=== PATIENT | female | born 1980 | race Caucasian/White ===

== ENCOUNTER 2017-01-11 19:15 | Emergency (ER) | payer MEDICAID ==
[~2017-01-11] VITALS: Ht 160 cm; Wt 81.4 kg
[~2017-01-11 19:15] MED LIST: PREN0.01 PO
[2017-01-11 19:25] VITALS: BP 115/55; PULSE 74; RESP 18; TEMP 97.9; O2SAT 100
[2017-01-11] MEDS ORDERED: SODIUM CHLOR 0.9% 1000 ML INJ 1,000 ML IV ONE (19:35)
--- NOTE | 2017-01-11 19:40 | PD ---
HPI Chief Complaint: Headache Time Seen by Provider: 19:30 Travel History International Travel<30 days: No Contact w/Intl Traveler<30days: No Traveled to known affect area: No History of Present Illness HPI Patient is a 36-year-old female who presents to emergency room with complaints of a migraine headache. Patient reports that she woke up this morning and had a pressure sensation across the front of her head. Patient reports that sensation was associated with photophobia. Patient reports no nausea or vomiting with her symptoms, denies any fevers or chills. Patient reports that she did try taking aspirin with no relief of symptoms. Patient reports that she has had migraines in the past, reports her symptoms today are similar to her previous except in the past, she did find relief with aspirin. Patient denies any trauma or injury to the head. Patient denies any thunderclap headache, reports that this is not the worst headache of her life. Patient with no chest pain or shortness of breath, no other symptoms. PFSH Past Medical History Diabetes: Yes (GESTATIONAL) Patient Takes Glucophage: No Diminished Hearing: No Headaches: Yes ("NO OFFICIAL MIGRAINE DIAGNOSIS") Medical other: Yes (CHILDHOOD CH[place]) Tetanus Vaccination: > 5 Years Influenza Vaccination: Yes ?: Not LMP: 01/11/17 : 4 Para: 3 Miscarriage: 1 Tubal Ligation: Yes (AUGUST 2016) Past Surgical History Section: Yes (X3) Social History Alcohol Use: Yes ("VERY RARELY") Tobacco Use: Yes (1/2 PPD) Substance Use: No Allergies-Medications (Allergen,Severity, Reaction): Coded Allergies: No Known Allergies (Verified Adverse Reaction, Unknown, 01/11/17) Reported Meds & Prescriptions Reported Meds & Active Scripts Active No Active Prescriptions or Reported Medications Review of Systems HENT: Positive: Headaches, No: Vertigo, Lightheadedness, Sore Throat, Neck Pain Cardiovascular: No: Chest Pain or Discomfort, Palpitations, Irregular Rhythm Respiratory: No: Cough, Shortness of Breath, Wheezing Gastrointestinal: No: Diarrhea Neurologic: Positive: Headache, No: Weakness, Dizziness, Syncope, Focal Abnormalities, Tremor, Ataxia Physical Exam Narrative GENERAL: moderate distress SKIN: Focused skin assessment warm/dry. HEAD: Atraumatic. Normocephalic. EYES: Pupils equal and round. No scleral icterus. No injection or drainage. ENT: No nasal bleeding or discharge. Mucous membranes pink and moist. NECK: Trachea midline. No JVD. CARDIOVASCULAR: Regular rate and rhythm. No murmur appreciated. RESPIRATORY: No accessory muscle use. Clear to auscultation. Breath sounds equal bilaterally. GASTROINTESTINAL: Abdomen soft, non-tender, nondistended. Hepatic and splenic margins not palpable. MUSCULOSKELETAL: No obvious deformities. No clubbing. No cyanosis. No edema. NEUROLOGICAL: Awake and alert. No obvious cranial nerve deficits. Motor grossly within normal limits. Normal speech. CN 2-12 grossly intact with no neurological deficits PSYCHIATRIC: Appropriate mood and affect; insight and judgment normal. Data Data Last Documented VS Vital Signs Date Time Temp Pulse Resp B/P (MAP) Pulse Ox O2 Delivery O2 Flow Rate FiO2 01/11/17 21:00 66 16 102/63 (76) 100 Room Air 01/11/17 19:25 97.9 Orders Orders Complete Blood Count With Diff (01/11/17 19:35) Basic Metabolic Panel (Bmp) (01/11/17 19:35) Prothrombin Time / Inr (Pt) (01/11/17 19:35) Act Partial Throm Time (Ptt) (01/11/17 19:35) Ct Brain W/O Iv Contrast(Rout) (01/11/17 19:35) Ecg Monitoring (01/11/17 19:35) Iv Access Insert/Monitor (01/11/17 19:35) Oximetry (01/11/17 19:35) Sodium Chloride 0.9% Flush (Ns Flush) (01/11/17 19:45) Diphenhydramine Inj (Benadryl Inj) (01/11/17 19:45) Metoclopramide Inj (Reglan Inj) (01/11/17 19:45) Sodium Chlor 0.9% 1000 Ml Inj (Ns 1000 M (01/11/17 19:35) Dexamethasone Inj (Decadron Inj) (01/11/17 19:45) Ed Urine Pregnancytest Poc (01/11/17 19:35) Ketorolac Inj (Toradol Inj) (01/11/17 21:00) Labs Laboratory Tests Test 01/11/17 19:50 White Blood Count 10.1 TH/MM3 Red Blood Count 4.51 MIL/MM3 Hemoglobin 13.4 GM/DL Hematocrit 39.6 % Mean Corpuscular Volume 87.7 FL Mean Corpuscular Hemoglobin 29.7 PG Mean Corpuscular Hemoglobin Concent 33.9 % Red Cell Distribution Width 12.5 % Platelet Count 265 TH/MM3 Mean Platelet Volume 8.6 FL Neutrophils (%) (Auto) 55.0 % Lymphocytes (%) (Auto) 34.8 % Monocytes (%) (Auto) 4.7 % Eosinophils (%) (Auto) 3.8 % Basophils (%) (Auto) 1.7 % Neutrophils # (Auto) 5.5 TH/MM3 Lymphocytes # (Auto) 3.5 TH/MM3 Monocytes # (Auto) 0.5 TH/MM3 Eosinophils # (Auto) 0.4 TH/MM3 Basophils # (Auto) 0.2 TH/MM3 CBC Comment DIFF FINAL Differential Comment Prothrombin Time 10.7 SEC Prothromb Time International Ratio 1.0 RATIO Activated Partial Thromboplast Time 29.4 SEC Blood Urea Nitrogen 10 MG/DL Creatinine 0.82 MG/DL Random Glucose 84 MG/DL Calcium Level 8.4 MG/DL Sodium Level 140 MEQ/L Potassium Level 3.8 MEQ/L Chloride Level 109 MEQ/L Carbon Dioxide Level 22.4 MEQ/L Anion Gap 9 MEQ/L Estimat Glomerular Filtration Rate 80 ML/MIN MDM Medical Decision Making Medical Screen Exam Complete: Yes Emergency Medical Condition: Yes Medical Record Reviewed: Yes Interpretation(s) Vital Signs Date Time Temp Pulse Resp B/P (MAP) Pulse Ox O2 Delivery O2 Flow Rate FiO2 01/11/17 19:25 97.9 74 18 115/55 (75) 100 Differential Diagnosis cephalgia, intracranial hemorrhage, electrolyte abnormality, migraine Narrative Course Patient is a 36-year-old female presents to emergency room with complaints of migraine headache since 7 AM this morning. Patient reports history of migraines in the past, reports that her symptoms today are similar to the past when she has had migraines only today, symptoms have been persistent. Patient reports that she was never formally diagnosed with migraine headaches, has never had any imaging studies. During the course of the patients emergency department visit, the patients history, examination, and differential diagnosis were reviewed with the patient. The patient was placed on a practicing urologist with oximetry and frequent blood pressure monitoring. The patient had 20 gauge IV access obtained and blood work sent for analysis. The patient was initially provided IVF, IV Dexamethasone, IV Reglan, IV Benadryl The patients laboratory studies were reviewed and remarkable for CBC & BMP Diagram 01/11/17 19:50 Calcium Level 8.4 L Radiology studies were reviewed and remarkable for no acute findings with CT of the head. Patient with complete resolution of symptoms at this time, patient with no neurological deficits. Patient will follow-up with her primary care doctor and will return to emergency room as needed. Diagnosis Primary Impression: Cephalgia Qualified Codes: R51 - Headache Patient Instructions: General Instructions Additional Instructions: Please provide patient with a copy of their lab work and studies at discharge* * Please follow up with your primary care doctor in 2-3 days Return to the ER if symptoms worsen or progress Return to the ER as needed Scripts No Active Prescriptions or Reported Meds Disposition: 01 DISCHARGE HOME Condition: Stable Eva Barrios DO Jan 11, 2017 19:40
[2017-01-11] MEDS ORDERED: METOCLOPRAMIDE HCL 10 MG/2 ML VIAL IVP ONE (19:45)
[2017-01-11] MEDS ORDERED: diphenhydrAMINE HCL 50 MG/ML VIAL IVP ONE (19:45)
[2017-01-11] MEDS ORDERED: SODIUM CHLORIDE 0.9% FLUSH 10 ML FLUSH IVF PRN (19:45)
[2017-01-11] MEDS ORDERED: DEXAMETHASONE SOD PHOS 20 MG/5 ML VIAL IV PUSH ONE (19:45)
[2017-01-11 19:56] LABS: AUTOMATED NEUTROPHIL # 5.5 TH/MM3 (1.8-7.7); BASOPHIL # 0.2 TH/MM3 (0-0.2); BASOPHIL % 1.7 % (0.0-2.0); EOSINOPHIL # 0.4 TH/MM3 (0-0.4); EOSINOPHIL % 3.8 % (0.0-4.0); HEMATOCRIT 39.6 % (35.0-46.0); HEMO FLAGS DIFF FINAL; LYMPH % 34.8 % (9.0-44.0); LYMPHOCYTE # 3.5 TH/MM3 (1.0-4.8); MEAN CELL VOLUME 87.7 FL (80.0-100.0); MEAN CORPUSCULAR HEMOGLOBIN 29.7 PG (27.0-34.0); MEAN CORPUSCULAR HGB CONC 33.9 % (32.0-36.0); MONO % 4.7 % (0.0-8.0); PLATELET COUNT 265 TH/MM3 (150-450); RED BLOOD COUNT 4.51 MIL/MM3 (4.00-5.30); RED CELL DISTRIBUTION WIDTH 12.5 % (11.6-17.2); WHITE BLOOD COUNT 10.1 TH/MM3 (4.0-11.0)
[2017-01-11 20:03] LABS: POTASSIUM 3.8 MEQ/L (3.5-5.1)
[2017-01-11 20:06] LABS: BICARBONATE 22.4 MEQ/L (21.0-32.0)
[2017-01-11 20:08] LABS: APTT (PATIENT) 29.4 SEC (24.3-30.1); PROTHROMBIN TIME - PATIENT 10.7 SEC (9.8-11.6)
--- NOTE | 2017-01-11 20:46 | RADRPT ---
EXAM DATE/TIME: 01/11/2017 20:10 [facility] COMPARISON: No previous studies available for comparison. INDICATIONS : Cephalgia. RADIATION DOSE: 62.22 CTDIvol (mGy) MEDICAL HISTORY : None SURGICAL HISTORY : None. ENCOUNTER: Initial ACUITY: 1 day PAIN SCALE: 8/10 LOCATION: cranial TECHNIQUE: Multiple contiguous axial images were obtained of the head. Using automated exposure control and adj ustment of the mA and/or kV according to patient size, radiation dose was kept as low as reasonably a chievable to obtain optimal diagnostic quality images. DICOM format image data is available electro nically for review and comparison. FINDINGS: CEREBRUM: The ventricles are normal for age. No evidence of midline shift, mass lesion, hemorrhage or acute in farction. No extra-axial fluid collections are seen. POSTERIOR FOSSA: The cerebellum and brainstem are intact. The 4th ventricle is midline. The cerebellopontine angle i s unremarkable. EXTRACRANIAL: The visualized portion of the orbits is intact. SKULL: The calvaria is intact. No evidence of skull fracture. CONCLUSION: Negative noncontrast CT Roderick Navarro MD on January 11, 2017 at 20:44 Board Certified Radiologist. This report was verified electronically.
[2017-01-11 21:00] VITALS: BP 102/63; PULSE 66; RESP 16; O2SAT 100
[2017-01-11] MEDS ORDERED: KETOROLAC TROMETHAMINE 30 MG/ML (IVP) VIAL IVP ONE (21:00)
== END 2017-01-11 21:47 | disposition home or self-care (01) ==
LOC: PHED 19:15
DX: R51 Headache (principal); F17.200 Nicotine dependence, unspecified, uncomplicated
CPT/HCPCS: 70450; 80048; 84703; 85025; 85610; 85730; 96361; 96374; 96375; 99285; J1100; J1200; J1885; J2765; J7030